=== PATIENT | male | born 2000 | race Caucasian/White ===

== ENCOUNTER 2021-11-24 18:52 | Emergency (ER) | payer SELFPAY | END 2021-11-24 20:03 | disposition home or self-care (01) | LOC: VM.ED 18:52 | DX: S06.0X1A Concussion with loss of consciousness of 30 minutes or less, initial encounter (principal); S00.83XA Contusion of other part of head, initial encounter; Z72.0 Tobacco use; W18.09XA Striking against other object with subsequent fall, initial encounter | CPT/HCPCS: 70450; 99283; 99283-25 ==